=== PATIENT | female | born 1990 | race Hispanic/Latino ===

== ENCOUNTER 2017-04-15 13:40 | Emergency (ER) | payer BC ==
[2017-04-15 13:46] VITALS: BP 136/96
--- NOTE | 2017-04-15 15:40 | Emergency Department Report ---
Chief Complaint: Upper Respiratory Infection Stated Complaint: FLU LIKE SYMPTOMS - HPI History of Present Illness: Ms. Zaidi is being evaluated in outpatient [facility]. Nurse referred her to ER for evaluation for possible influenza. Her symptoms: chills, body aches, nasal congestion, malaise - Exam Vital Signs: Vital Signs 04/15/17 13:42 Temperature 98.7 F Pulse Rate 96 H Respiratory 18 Rate Blood Pressure 136/96 O2 Sat by Pulse 96 Oximetry MSE screening note: Focused history and physical exam performed. Due to findings the following was ordered: ED Disposition for MSE Condition: Stable
--- NOTE | 2017-04-15 16:57 | Emergency Department Report ---
- General Chief Complaint: Upper Respiratory Infection Stated Complaint: FLU LIKE SYMPTOMS Time Seen by Provider: 04/15/17 16:45 Source: patient Mode of arrival: Ambulatory Limitations: No Limitations - History of Present Illness Initial Comments: Ms. Zaidi is being evaluated in outpatient [facility] at [facility]. Nurse referred her to ER for evaluation for possible influenza. Her symptoms: chills, body aches, nasal congestion, malaise MD Complaint: fever, cough, sore throat, rhinorrhea, nasal congestion, sinus pain Onset/Timin -: days(s) Severity: moderate Severity scale (0 -10): 4 Quality: sharp, aching Consistency: intermittent Improves With: nothing Worsens With: activity Context: sick contacts Associated Symptoms: fever, chills, myalgias, headache, rhinorrhea, nasal congestion, sore throat, cough, nausea. denies: diaphoresis, chest pain, shortness of breath, abdominal pain, vomiting, diarrhea, dysuria, rash, confusion, right sweats, weight loss, epistaxis, hoarseness, ear pain Treatments Prior to Arrival: none - Related Data Previous Rx's Medication Instructions Recorded Last Taken Type Acetaminophen/Chlorpheniramine 2 each PO Q4H #24 tablet 04/15/17 Unknown Rx [Coricidin Hbp Cold & Flu] Ibuprofen 800 mg PO TID PRN #30 tablet 04/15/17 Unknown Rx Ondansetron [Zofran Odt] 4 mg PO TID PRN #12 tab.rapdis 04/15/17 Unknown Rx Allergies Allergy/AdvReac Type Severity Reaction Status Date / Time No Known Allergies Allergy Unverified 04/15/17 13:42 ED Review of Systems ROS: Stated complaint: FLU LIKE SYMPTOMS Other details as noted in HPI Constitutional: chills, fever Eyes: denies: eye pain, eye discharge, vision change ENT: ear pain, throat pain, congestion Respiratory: cough. denies: shortness of breath, stridor, wheezing Cardiovascular: denies: chest pain, palpitations, paroxysmal nocturnal dyspnea Endocrine: no symptoms reported Gastrointestinal: nausea. denies: abdominal pain, vomiting, diarrhea, constipation, hematemesis, melena, hematochezia Genitourinary: frequency. denies: urgency, dysuria, discharge Musculoskeletal: denies: back pain, joint swelling, arthralgia Skin: denies: rash, lesions Neurological: denies: headache, weakness, paresthesias Psychiatric: denies: anxiety, depression Hematological/Lymphatic: denies: easy bleeding, easy bruising ED Past Medical Hx - Past Medical History Previous Medical History?: No - Surgical History Past Surgical History?: No - Social History Smoking Status: Current Every Day Smoker Substance Use Type: None - Medications Home Medications: Home Medications Medication Instructions Recorded Confirmed Last Taken Type Acetaminophen/Chlorpheniramine 2 each PO Q4H #24 tablet 04/15/17 Unknown Rx [Coricidin Hbp Cold & Flu] Ibuprofen 800 mg PO TID PRN #30 tablet 04/15/17 Unknown Rx Ondansetron [Zofran Odt] 4 mg PO TID PRN #12 tab.rapdis 04/15/17 Unknown Rx ED Physical Exam - General Limitations: No Limitations General appearance: alert, in no apparent distress - Head Head exam: Present: atraumatic, normocephalic - Eye Eye exam: Present: normal appearance, PERRL, EOMI Pupils: Present: normal accommodation - ENT ENT exam: Present: mucous membranes moist, TM's normal bilaterally - Expanded ENT Exam Expanded Throat exam: Positive: normal inspection, tonsillar erythema, tonsillomegaly. Negative: tonsillar exudate, R peritonsillar mass, L peritonsillar mass - Neck Neck exam: Present: normal inspection, full ROM. Absent: tenderness, lymphadenopathy, thyromegaly - Respiratory Respiratory exam: Absent: wheezes, stridor, chest wall tenderness - Cardiovascular Cardiovascular Exam: Present: regular rate, normal rhythm. Absent: systolic murmur, diastolic murmur, rubs, gallop - GI/Abdominal GI/Abdominal exam: Present: soft, normal bowel sounds - Rectal Rectal exam: Present: deferred - Extremities Exam Extremities exam: Present: normal inspection - Back Exam Back exam: Present: normal inspection, full ROM. Absent: CVA tenderness (R), CVA tenderness (L), muscle spasm, paraspinal tenderness, vertebral tenderness, rash noted - Neurological Exam Neurological exam: Present: alert, oriented X3, CN II-XII intact, normal gait, reflexes normal - Psychiatric Psychiatric exam: Present: normal affect, normal mood - Skin Skin exam: Present: warm, dry, intact, normal color. Absent: rash ED Course Vital Signs 04/15/17 13:42 Temperature 98.7 F Pulse Rate 96 H Respiratory 18 Rate Blood Pressure 136/96 O2 Sat by Pulse 96 Oximetry ED Medical Decision Making - Medical Decision Making pt presents for flu like symptoms no fever no tachycardia ent exam normal tm no erythema , nose: boggy clear post nasl drip , pharynx mild erythema no exuate no lesions no stridor uvula midline, lungs clear no wheezing, abd: bs normal, nontender no bruit no hernia no rebound no signs pt is tolerating po hydration with out n/v at this time there is no fever. plan tx for uti, pt will follow up with pcp in 2-3 days. Critical care attestation.: If time is entered above; I have spent that time in minutes in the direct care of this critically ill patient, excluding procedure time. ED Disposition Clinical Impression: URI (upper respiratory infection) Qualifiers: URI type: unspecified viral URI Qualified Code(s): J06.9 - Acute upper respiratory infection, unspecified Disposition: TO HOME OR SELFCARE Is pt being admited?: No Does the pt Need Aspirin: No Condition: Good Instructions: Upper Respiratory Infection (ED) Prescriptions: Acetaminophen/Chlorpheniramine [Coricidin Hbp Cold & Flu] 2 each PO Q4H #24 tablet Ibuprofen 800 mg PO TID PRN #30 tablet PRN Reason: pain fever Ondansetron [Zofran Odt] 4 mg PO TID PRN #12 tab.rapdis PRN Reason: nausea and vomiting Referrals: PRIMARY CARE, [Primary Care Provider] - 3-5 Days Forms: Work/School Release Form(ED) Time of Disposition: 17:00
== END 2017-04-15 19:00 | disposition home or self-care (01) ==
LOC: ED 13:40
DX: J06.9 Acute upper respiratory infection, unspecified (principal); F17.200 Nicotine dependence, unspecified, uncomplicated
CPT/HCPCS: 99282